=== PATIENT | female | born 1955 | race Caucasian/White ===

== ENCOUNTER 2022-12-07 21:56 | Emergency (ER) | payer MEDICAID ==
[~2022-12-07] VITALS: Ht 165.1 cm; Wt 72.6 kg
--- NOTE | 2022-12-07 22:04 | NUR ---
Patient triaged and placed in ED RM 03. VSS and patient appears in no acute distress at this time. BIB ALS. MD Alejandro notified of need for MSE.
[2022-12-07 22:05] VITALS: BP_SYST 180
--- NOTE | 2022-12-07 22:14 | NUR ---
First contact. Pt placed in gown and on monitor.
[2022-12-07] MEDS ORDERED: KETOROLAC TROMETHAMINE 30 MG VIAL IVP ONE (22:30)
[2022-12-07 23:08] LABS: BASOPHILS % (AUTO) 0.5 % (0.0-2.0); EOSINOPHILS # (AUTO) 0.1 K/uL (0.0-0.4); HEMATOCRIT 36.5 % (36-48); HEMOGLOBIN 11.5 g/dL (12.0-16.0); LYMPHOCYTES # (AUTO) 1.1 K/uL (1.0-5.5); LYMPHOCYTES % (AUTO) 13.4 % (20.5-51.5); MEAN CORPUSCULAR HEMOGLOBIN 23 pg (27-31); MEAN CORPUSCULAR HGB CONC 32 % (32-36); MEAN CORPUSCULAR VOLUME 74 fL (79.0-98.0); MONOCYTES # (AUTO) 0.4 K/uL (0.0-1.0); MONOCYTES % (AUTO) 4.7 % (1.7-9.3); NEUTROPHILS # (AUTO) 6.6 K/uL (1.8-7.7); NEUTROPHILS % (AUTO) 80.4 % (40.0-70.0); PLATELET COUNT (AUTO) 243 K/uL (130-430); RED BLOOD CELL COUNT(AUTO) 4.94 MIL/uL (4.2-6.2); RED CELL DISTRIBUTION WIDTH 17.1 % (9.0-15.0); WHITE BLOOD COUNT (AUTO) 8.2 K/uL (4.8-10.8)
[2022-12-07 23:21] LABS: ANION GAP 8 (5-15); CALCIUM 9.7 mg/dL (8.4-11.0); CHLORIDE 102 mmol/L (98-107); CREATININE 0.45 mg/dL (0.55-1.30); GFR AFRICAN AMERICAN 178 mL/min (>90); GLUCOSE 116 mg/dL (70-99); UREA NITROGEN, BLOOD 13 mg/dL (8-21)
[2022-12-07 23:28] LABS: ALANINE AMINOTRANSFERASE 23 U/L (12-78); ALBUMIN 3.6 g/dL (3.4-4.8); ASPARTATE AMINOTRANSFERASE 17 U/L (10-37); TOTAL BILIRUBIN 0.2 mg/dL (0.0-1.0)
[2022-12-08 00:30] VITALS: BP_SYST 126
--- NOTE | 2022-12-08 01:04 | NUR ---
Patient as well as patient's daughter & son given written and verbal discharge instructions by Dr. Alejandro and all verbalized understanding. ER MD discussed with patient the results and treatment provided. Patient in stable condition. ID arm band removed. IV catheter removed intact and dressing applied, no active bleeding. Patient educated on pain management and to follow up with PMD. Opportunity for questions provided and answered.
== END 2022-12-08 01:04 | disposition home or self-care (01) ==
LOC: SED 21:56
DX: I10 Essential (primary) hypertension (principal); F41.9 Anxiety disorder, unspecified; R51.9 Headache, unspecified; R11.0 Nausea; Z88.8 Allergy status to other drugs, medicaments and biological substances; Z79.899 Other long term (current) drug therapy
CPT/HCPCS: 99285; 96374; 70450; 71045; 80053; 83880; 85025; 84484; 36415; 76376; 93005; J1885

== ENCOUNTER 2023-06-28 22:54 | Emergency (ER) | payer MEDICAID ==
[~2023-06-28] VITALS: Ht 157.5 cm; Wt 81.6 kg
[2023-06-28 23:19] VITALS: BP_SYST 158; PULSE 95; RESP 18; TEMP 98.3; O2SAT 95
[2023-06-28] MEDS ORDERED: LORazepam 1 MG TABLET PO ONE (23:30)
[2023-06-29 00:47] LABS: BASOPHILS % (AUTO) 0.5 % (0.0-2.0); EOSINOPHILS # (AUTO) 0.1 K/uL (0.0-0.4); EOSINOPHILS % (AUTO) 0.9 % (0.0-4.0); HEMATOCRIT 33.4 % (36-48); HEMOGLOBIN 10.7 g/dL (12.0-16.0); LYMPHOCYTES # (AUTO) 1.2 K/uL (1.0-5.5); LYMPHOCYTES % (AUTO) 15.9 % (20.5-51.5); MEAN CORPUSCULAR HEMOGLOBIN 23 pg (27-31); MEAN CORPUSCULAR HGB CONC 32 % (32-36); MEAN CORPUSCULAR VOLUME 72 fL (79.0-98.0); MONOCYTES # (AUTO) 0.5 K/uL (0.0-1.0); NEUTROPHILS # (AUTO) 5.9 K/uL (1.8-7.7); NEUTROPHILS % (AUTO) 76.7 % (40.0-70.0); PLATELET COUNT (AUTO) 260 K/uL (130-430); RED BLOOD CELL COUNT(AUTO) 4.63 MIL/uL (4.2-6.2); RED CELL DISTRIBUTION WIDTH 18.2 % (9.0-15.0); WHITE BLOOD COUNT (AUTO) 7.7 K/uL (4.8-10.8)
[2023-06-29 00:49] LABS: ANION GAP 10 (5-15); CALCIUM 9.2 mg/dL (8.4-11.0); CARBON DIOXIDE 27 mmol/L (23-29); CHLORIDE 102 mmol/L (98-107); CREATININE 0.56 mg/dL (0.55-1.30); GFR AFRICAN AMERICAN 138 mL/min (>90); GLUCOSE 118 mg/dL (74-106); POTASSIUM 3.7 mmol/L (3.5-5.1); SODIUM SERUM 139 mmol/L (136-145); UREA NITROGEN, BLOOD 14 mg/dL (8-21)
[2023-06-29 00:51] LABS: PROTHROMBIN TIME 10.6 SECS (9.5-12.5)
[2023-06-29 00:53] LABS: GFR NON AFRICAN-AMERICAN 114 mL/min (>90)
[2023-06-29 00:56] LABS: ALANINE AMINOTRANSFERASE 20 U/L (12-78); ALBUMIN 3.4 g/dL (3.4-4.8); ASPARTATE AMINOTRANSFERASE 23 U/L (10-37); CREATINE KINASE, TOTAL 227 U/L (26-192); PHOSPHORUS 3.4 mg/dL (2.7-4.5); TOTAL BILIRUBIN 0.3 mg/dL (0.0-1.0); TOTAL PROTEIN, SERUM 7.4 g/dL (6.4-8.3)
[2023-06-29 01:31] VITALS: BP_SYST 158; PULSE 95; RESP 18; TEMP 98.3; O2SAT 95
[2023-06-29 01:34] LABS: CKMB RELATIVE INDEX 1.1 (0.0-2.9); CREATINE KINASE MB 2.4 ng/mL (0-3.6)
== END 2023-06-29 01:31 | disposition home or self-care (01) ==
LOC: SED 22:54
DX: D50.9 Iron deficiency anemia, unspecified (principal); R07.9 Chest pain, unspecified; F41.9 Anxiety disorder, unspecified; I10 Essential (primary) hypertension; Z88.8 Allergy status to other drugs, medicaments and biological substances; Z79.899 Other long term (current) drug therapy
CPT/HCPCS: 36415; 71045; 80053; 82550; 82553; 83880; 84100; 84484; 85025; 85610-TC; 85730-TC; 93005; 99285

== ENCOUNTER 2023-08-30 08:40 | Day surgery (SDC) | payer MEDICAID ==
[~2023-08-30] VITALS: Ht 160 cm; Wt 95.3 kg
[2023-08-30] MEDS: MEPERIDINE 100 MG INJ. 100 MG/ML VIAL ONE ×4 (10:56→11:14)
[2023-08-30] MEDS: MIDAZOLAM HCL 5 MG/5 ML VIAL ONE ×4 (10:56→11:04)
[2023-08-30] MEDS ORDERED: BENZOCAINE 20% 0.5mL UD SPRAY MM ONE (10:58)
[2023-08-30] MEDS ORDERED: ONDANSETRON HCL 4 MG/2 ML VIAL ONE (11:14)
[2023-08-30] MEDS ORDERED: MIDAZOLAM HCL 5 MG/5 ML VIAL ONE (11:14)
[2023-08-30 14:44] VITALS: O2SAT 100
[2023-08-30 15:43] VITALS: BP_SYST 129; PULSE 66; RESP 10
== END 2023-08-30 13:06 | disposition home or self-care (01) ==
LOC: SDS 08:40 → SMU 08:42 → SDS 13:06
PROVIDERS: ATTEND Internal Medicine
DX: R19.4 Change in bowel habit (principal); K21.9 Gastro-esophageal reflux disease without esophagitis; K64.8 Other hemorrhoids; K52.9 Noninfective gastroenteritis and colitis, unspecified; R13.10 Dysphagia, unspecified; K29.50 Unspecified chronic gastritis without bleeding; F41.9 Anxiety disorder, unspecified; F32.A Depression, unspecified; I10 Essential (primary) hypertension; Z98.890 Other specified postprocedural states; Z79.899 Other long term (current) drug therapy
CPT/HCPCS: 45380; 43239; 43248; 99152; 88305; 88312; 88313; 99153; G0378; J2250; J2405; J2175; C1769